=== PATIENT | female | born 1985 | race Caucasian/White ===

== ENCOUNTER → 2018-11-21 12:48 | Outpatient (CLI) | payer MEDICARE, MEDICAID, SELFPAY ==
--- NOTE | 2018-11-21 | DI.MRI.S_ITS ---
PROCEDURE: MR THORACIC SPINE WO CON INDICATIONS: PAIN IN THORACIC SPINE TECHNIQUE: Noncontrast sagittal T1 spine echo and T2 fast spin echo, sagittal STIR, axial T1 and T2 fast spin echo through the thoracic spine. COMPARISON: None. FINDINGS: Image quality: Excellent. Alignment and Curvature: There is normal bony alignment. Bone Marrow: Marrow is of normal overall signal. No acute vertebral body compression fractures. Spinal Cord: Visualized spinal cord is normal in size and signal. Paraspinous Soft Tissues: No paravertebral masses. Miscellaneous: At T2-T3, there is minimal disc bulge seen. No significant neural foraminal or central canal narrowing can be seen. At T6-T7, there is a mild central disc bulge, with minimal central canal narrowing and no neural foraminal narrowing. At T8-T9, there is a mild disc bulge seen, with mild central canal narrowing and no neural foraminal narrowing. At T10-T11, there is mild disc bulge seen, as on series 8 image 20. Minimal central canal narrowing is seen. No neural foraminal narrowing is seen. IMPRESSION: Several levels of mild degenerative change can be seen. Dictated by: Rangel Verma M.D. on 11/21/2018 at 12:54 Approved by: Rangel Verma M.D. on 11/21/2018 at 12:57
== END ==
PROVIDERS: PCP Physician Assistant Medical; Visit Provider Physician Assistant Medical
DX: M54.6 Pain in thoracic spine (principal); M47.814 Spondylosis without myelopathy or radiculopathy, thoracic region
CPT/HCPCS: 72146

== ENCOUNTER → 2020-05-19 17:25 | Outpatient (CLI) | payer MEDICARE, MEDICAID, SELFPAY ==
--- NOTE | 2020-05-19 17:28 | DI.RAD.S_ITS ---
PROCEDURE: XR ANKLE LT MIN 3V INDICATIONS: lateral left ankle swelling/pain, r/o fx TECHNIQUE: 3 views of the ankle were acquired. COMPARISON: None. FINDINGS: Bones: No acute fractures or dislocations. A small osseous fragment adjacent to the medial malleolar tip is likely the sequela of a remote prior trauma. Ankle mortise is normally aligned. No suspicious bony lesions. Soft tissues: Prominent soft tissue edema is seen over the lateral malleolus. IMPRESSION: No acute osseous abnormality. Soft tissue edema is seen at the lateral malleolus. If clinical suspicion and/or symptoms persist, further assessment with repeat plain films, or advanced imaging (e.g., CT, MRI, or bone scan) may be helpful for further assessment. Dictated by: Denis Espino M.D. on 05/19/2020 at 16:47 Approved by: Denis Espino M.D. on 05/19/2020 at 16:48
--- NOTE | 2020-05-19 17:28 | DI.RAD.S_ITS ---
PROCEDURE: XR FOOT LT MIN 3V INDICATIONS: lateral left ankle swelling/pain, r/o fx TECHNIQUE: 3 views of the foot were acquired. COMPARISON: None. FINDINGS: Bones: No acute fractures or dislocations. No suspicious bony lesions. A small os naviculare is present. A tiny osseous fragment is seen adjacent to the medial malleolar tip that is likely the sequela of a remote prior injury. A small plantar calcaneal spur is present. Soft tissues: Soft tissue edema is seen surrounding the ankle. IMPRESSION: No acute osseous abnormality. If clinical suspicion and/or symptoms persist, further assessment with repeat plain films, or advanced imaging (e.g., CT, MRI, or bone scan) may be helpful for further assessment. Dictated by: Denis Espino M.D. on 05/19/2020 at 16:44 Approved by: Denis Espino M.D. on 05/19/2020 at 16:46
== END ==
PROVIDERS: PCP Physician Assistant Medical; Referring Provider Physician Assistant; Visit Provider Physician Assistant
DX: S99.912A Unspecified injury of left ankle, initial encounter (principal); M25.572 Pain in left ankle and joints of left foot; R60.0 Localized edema; X58.XXXA Exposure to other specified factors, initial encounter
CPT/HCPCS: 73610; 73630

== ENCOUNTER 2021-09-01 08:31 | Day surgery (SDC) | payer MEDICARE, MEDICAID, SELFPAY ==
[2021-09-01] VITALS (8 sets, daily range): BP systolic 112–132; BP diastolic 67–84; PULSE 82–111; RESP 14–26; TEMP 36.3–36.8; O2SAT 92–96; BMI 45.6
--- NOTE | 2021-09-01 | PATH_ITS ---
[facility] Accession Number: [id number] No. of containers..01 Tissue . 01 Material submitted: . uterus - UTERUS, BILATERAL TUBES AND OVARIES . 02 Diagnosis: Uterus with Bilateral Fallopian Tubes and Ovaries, Supracervical Hysterectomy with Bilateral Salpingo-oophorectomy: Proliferative endometrium with no diagnostic abnormality. Myometrium with no diagnostic abnormality. Bilateral ovaries with numerous cystic follicles, suggestive of polycystic ovarian syndrome in the appropriate clinical setting. Bilateral fimbriated fallopian tubes with no diagnostic abnormality. No evidence of neoplasm. [facility] 09/03/2021 1816 Local . 02 Electronically signed: . John Mendoza MD, PhD, Pathologist NPI- [id number] . 01 Gross description: . The specimen is received in formalin labeled with the patient's name and uterus, bilateral tubes and ovaries. It is composed of a morcellated uterus weighing 106 grams. The orientation cannot be determined. Two of the fragments show endomyometrium and attached ovary and fallopian tube. The apparent endometrium shows a hernandez-white smooth lining. Discrete lesions are not identified. Sectioning through the endomyometrium reveals a hernandez-white trabeculated cut surface of the myometrium. A focal slit-like area of hemorrhagic lesion is identified in the center of the myometrium measuring 1.4 cm in length x less than 0.1 cm in diameter. One tubo-ovarian unit with focal area of endometrium shows a total measurement of 7.5 x 2.0 x 2.0 cm. The fimbriated fallopian tube is disrupted in the center and shows a length of 3.0 cm x a diameter of 0.5 cm. The serosal surface of the fallopian tube is hernandez-lopez and smooth. Sectioning reveals a stellate lumen. The ovary in this unit measures 2.5 x 2.5 x 1.5 cm. The outer surface is uneven hernandez-white and cerebriform. Sectioning reveals multiple simple follicular-type cysts ranging in size from 0.7 to 0.4 cm. A few of the cysts show hemorrhagic fluid. The second tubo-ovarian unit with attached unremarkable appearing endometrium shows a total measurement of 8.0 x 2.0 x 1.5 cm. The partially disrupted fallopian tube shows a 2.0 cm length x 0.5 cm in diameter. The serosal surface of the fallopian tube is hernandez-lopez and smooth. Sectioning reveals a pinpoint lumen. The attached ovary measures 3.0 x 2.5 x 0.9 cm. The outer surface is slightly uneven hernandez-white and cerebriform. Sectioning reveals multiple smooth walled cysts ranging from 0.5 to 0.1 cm in diameter. Review Consultant sections are submitted as follows: . A1-A5 - Sections of the endomyometrium. A4 and A5 represent the hemorrhagic lesion within the myometrium. A6-A8 - Review Consultant sections of fallopian tube and ovary from the first unit. A9-A10 - Review Consultant sections of fallopian tube and ovary from the second tubo-ovarian unit. ([id number]) /[facility] 09/02/2021 [facility]3 Local . 02 Pathologist provided ICD-10: N92.0, N94.6 . 02 CPT . 363008 Specimen Comment: A courtesy copy of this report has been sent to [phone] Performed at: 01 [facility] [address] [id number] MD Driss Tsang MD Phone: [phone] Performed at: 02 [facility] [place] [id number] [address] [place] [id number] MD Bri Sales MD Phone: [phone]
[2021-09-01] MEDS: LACTATED RINGERS 1,000 ML 42 ML IV (09:11)
[2021-09-01] MEDS: ACETAMINOPHEN 325 MG TABLET 975 MG PO (09:13)
[2021-09-01 09:14] LABS: COVID19 -Nasal RAPID Negative (Negative)
[2021-09-01] MEDS: SCOPOLAMINE 1 PATCH TOP (09:53)
[2021-09-01] MEDS: APREPITANT 40 MG CAPSULE PO (09:54)
--- NOTE | 2021-09-01 10:15 | PM.PREOP ---
Pre-operative Note COVID-19 COVID-19 status: Negative Result date/Date tested (Pos, Neg/Pending): 09/01/21 Criteria for continued procedure: Deterioration of the patient's condition or overall health and Non-surgical alternatives not available or appropriate per current SOC Interval Note History & Physical reviewed/Exam performed by Physician: Yes Changes to H&P: No H&P completed within 30 days and has changed as indicated here:: 08/27/21
[2021-09-01] MEDS: CEFAZOLIN 1 GM VIAL IV (10:45)
[2021-09-01] MEDS: CEFAZOLIN 2 GM/20 ML SYRINGE IV (10:45)
--- NOTE | 2021-09-01 11:38 | SUR.OPER ---
Lithotomy on padded OR bed. [place] Pad Positioner under torso. Head on pillow, arms padded and tucked at sides. Legs secured in padded yellow fins stirrups.
[2021-09-01] MEDS: ROPIVACAINE 0.2% PF 2 MG/ML 10ML AMP 20 ML INJ (12:09)
--- NOTE | 2021-09-01 12:19 | P.OP_ITS ---
Operative Date/Time/Diagnoses Date of procedure: 09/01/21 Time of procedure: 12:19 Pre-op diagnosis: Menorrhagia Dysmenorrhea Polycystic ovaries Post-op diagnosis: same Procedure & Clinicians Procedure: Procedures Operation Date: 09/01/21 10:45 Actual Procedure Side Surgeon p Laparoscopic Supracervical Hysterectomy w/bilateral salpingo-oophorectomy Judi Guillaume MD Indications: Menorrhagia Dysmenorrhea Polycystic ovaries Surgeon: Judi Guillaume Capacity Management Specialist: Florinda Webber Anesthesia Type: General and Local Operative Notes Findings: 8 week size anteverted uterus PCO bilaterally Tubes s/p ligation Normal liver and gallbladder Appendix not visualized Closure Type: primary Specimen(s): left tube & ovary, right tube & ovary and uterus Applied: catheter (Removed at the end of the case) Estimated blood loss (mL): 25 Blood products transfused: none Procedure in detail: The patient was taken to the operating room where she was placed in the dorsal supine position. After adequate general endotracheal anesthesia was achieved, she was placed in the dorsal lithotomy position, and prepped and draped in the usual sterile fashion. A timeout was performed. A bivalve speculum was placed into the vagina and the anterior lip of the cervix grasped with a single-tooth tenaculum. The cervical os was sequentially dilated until the ZUMI uterine manipulator could pass easily into the endometrial cavity. The single-tooth tenaculum was removed from the anterior lip of the cervix, and the bivalve speculum was removed from the vagina. Attention was then turned to the abdomen where 6 mL of half percent Marcaine with epinephrine were injected in the umbilical fold. A 5 mm incision was made. The veress needle was placed into the peritoneal cavity, and its placement confirmed by aspiration and drop test. The veress needle was removed. A 5 mm trocar was placed without difficulty. 2 other incisions were made 4 cm lateral to the umbilicus after 5 mL of half percent Marcaine with epinephrine were injected. These were 5 mm incisions. Two, 5 mm trochars were placed under direct visualization. The right tube and ovary were grasped with an atraumatic grasper. Using the power seal the infundibulopelvic ligamentwas cauterized and cut. Hemostasis was achieved. The cornua of the uterus was then grasped with an atraumatic grasper. The round ligament and broad ligament were cauterized and cut with the power seal. Hemostasis was achieved. The bladder flap was created using the power seal with cautery and cut residential across. The uterine arteries on the right side were extensively cauterized with plasma kinetic. All of this was repeated on the left side. The remainder of the bladder flap was created using the power seal, and the bladder taken down off the lower uterine segment and cervix. Using the [place], the cervix was amputated from the uterus 2 cm above the uterosacral ligaments, after the ZUMI uterine manipulator was removed from the uterus and a moistened sponge stick was placed in the vagina. There was a small amount of bleeding noted from the posterior edge of the cervix, and this was cauterized for hemostasis. The spatula was placed down into the endocervical canal and the endocervical canal was extensively cauterized. 6cc of half percent Marcaine with epinephrine were injected above the pubic symphysis. A 12mm incision was made. A 12 mm trocar was placed under direct visualization. An Endobag was placed through the suprapubic trocar and opened. The uterus, tubes, and ovaries were placed into the Endobag. The edges of the endobag were brought up through the skin. An Blayne was placed into the endobag. The uterus, tubes, and ovaries were morcellated in approximately 8 pieces. The Endobag with the Blayne were removed from the peritoneal cavity. The fascia of the suprapubic incision was closed with 0 Vicryl. The abdomen was re-insufflated. The pelvis was copiously irrigated with warm normal saline. No bleeding was noted. 20 mL of 0.2% ropivacaine were placed over the pelvic pedicles. The instruments were removed from the abdomen. The CO2 was allowed to escape. All of the incisions were closed with 4-0 Biosyn in a subcuticular fashion. Steri strips, 2x2's and op sites were placed over the incisions. The moistened sponge stick was removed from the vagina. Sponge, lap, and instrument counts were correct x 2. The patient tolerated the procedure well, was taken to PACU in stable condition. Complications: none Post-operative Condition: stable Disposition: PACU Plan for aftercare: Home after recovery
--- NOTE | 2021-09-01 14:23 | SUR.OPER ---
Lithotomy on padded OR bed. [place] Pad Positioner under torso. Head on pillow, arms padded and tucked at sides. Legs secured in padded yellow fins stirrups.
--- NOTE | 2021-09-01 14:31 | SUR.PHASEII ---
Patient discharged from [facility] at 1405, instructions reviewed at the car with her friend (with patient consent). Patient denied pain/nausea/ light headedness throughout her [facility] stay. 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 Patient is very complimentary of her care during this visit. No questions/concerns.
== END 2021-09-01 14:05 | disposition home or self-care (01) ==
LOC: OR 08:35 → AC 13:23 → OR 13:30
PROVIDERS: Referring Provider Obstetrics & Gynecology; Visit Provider Obstetrics & Gynecology
PROC: 0UT94ZL Resection of Uterus, Supracervical, Percutaneous Endoscopic Approach (ICD-10-PCS; CPT 58542; principal; 2021-09-01 10:45)
DX: E28.2 Polycystic ovarian syndrome (principal); Z20.822 Contact with and (suspected) exposure to COVID-19
CPT/HCPCS: 58542; 87635; C9803; J0330; J0690; J1100; J1885; J2250; J2405; J2704; J2795; J3010; J8501